=== PATIENT | female | born 1990 | race Caucasian/White ===

== ENCOUNTER 2020-07-06 02:44 | Emergency (ER) | payer OTHER ==
[~2020-07-06 02:44] MED LIST: CERTAGEN1 EACH PO; CLONAZEPAM 1MG T1 MG PO; GABAPENTIN 100100 MG PO; LOPRESSOR25 MG PO; OXYBUTYNIN CHLOR5 MG PO; OXYCODONE HCL15 M1 PO; SERTRALINE HCL100 MG PO; SYNTHROID150 MC1 PO; ZOLPIDEM 10MG T10 MG PO
[2020-07-06 03:14] LABS: BASOPHIL 0.7 % (0-2); HCT 45.6 % (37.0-47.0); HGB 14.4 g/dl (12.5-16.0); LYMPHOCYTE 26.3 % (15-48); MCH 27.7 pg (25.0-31.0); MCHC 31.6 g/dL (32.0-36.0); MCV 87.7 fL (78.0-100.0); MONOCYTE 5.3 % (0-12); MPV 10.8 fL (6.0-9.5); NEUTROPHIL 64.4 % (41-80); NRBC 0; PLT 317 K/uL (150-400); WBC 7.3 K/uL (4.0-10.5)
[2020-07-06 03:34] LABS: ACETAMINOPHEN (TYLENOL) < 2.0 ug/mL (10.0-30.0); ALBUMIN 4.2 g/dL (3.4-5.0); ALKALINE PHOSHATASE 202 U/L (46-116); ALT 114 U/L (14-59); AST 17 U/L (15-37); BILIRUBIN - TOTAL 0.3 mg/dL (0.2-1.0); BUN 5 mg/dL (7-18); BUN/CREAT RATIO (CALC) 8.1 RATIO; CHLORIDE 100 mmol/L (98-107); CO2 (BICARBONATE) 30 mmol/L (21-32); CREATININE 0.62 mg/dL (0.51-0.95); GLOBULIN (CALCULATION) 4.4 g/dL; GLUCOSE 106 mg/dL (74-106); LIPASE 95 U/L (73-393); MAGNESIUM 1.9 mg/dL (1.8-2.4); POTASSIUM 3.3 mmol/L (3.5-5.1); TOTAL PROTEIN 8.6 g/dL (6.4-8.2)
[2020-07-06 03:35] LABS: EOSINOPHIL(M) 2 % (0-5); LYMPHOCYTE(M) 28 % (15-48); MONOCYTE(M) 3 % (0-12); NEUTROPHILS(M) 67 % (41-80); PLATELET ESTIMATE NORMAL; PLATELET MORPHOLOGY NORMAL; TOTAL CELL COUNT 100
[2020-07-06 03:37] LABS: LACTIC ACID 1.1 mmol/L (0.4-1.9)
== END 2020-07-06 07:20 | disposition home or self-care (01) ==
LOC: FER 02:44
PROVIDERS: Emergency Medicine Emergency Medical Services
DX: R40.1 Stupor (principal); T42.4X5A Adverse effect of benzodiazepines, initial encounter; T42.6X5A Adverse effect of other antiepileptic and sedative-hypnotic drugs, initial encounter; F41.9 Anxiety disorder, unspecified; Y92.9 Unspecified place or not applicable; Z85.850 Personal history of malignant neoplasm of thyroid; Z98.890 Other specified postprocedural states; Z90.09 Acquired absence of other part of head and neck
CPT/HCPCS: 36415; 80053; 83605; 83690; 83735; 84703; 93005; G0480; J7030